=== PATIENT | male | born 1985 | race Caucasian/White ===

== ENCOUNTER 2023-05-08 11:17 | Emergency (ER) | payer SELFPAY ==
[~2023-05-08] VITALS: Ht 180.3 cm; Wt 88.5 kg
[2023-05-08 11:21] VITALS: BP 136/84; PULSE 106; RESP 16; TEMP 97.7; O2SAT 100
[2023-05-08 12:05] VITALS: BP 136/84; PULSE 106; RESP 16; TEMP 97.7; O2SAT 100
== END 2023-05-08 12:05 ==
LOC: MED 11:17
DX: R51.9 Headache, unspecified (principal); F15.10 Other stimulant abuse, uncomplicated; Z79.899 Other long term (current) drug therapy
CPT/HCPCS: 99283